=== PATIENT | female | born 1980 | race Caucasian/White ===

== ENCOUNTER 2021-09-17 10:37 | Outpatient (CLI) | payer OTHER, SELFPAY ==
--- NOTE | ~2021-09-17 | CT_ITS ---
EXAMINATION: CT abdomen pelvis w con DATE: 09/17/2021 11:20 INDICATION: Abdominal pain. History of diverticulitis. TECHNIQUE: Computed tomography (CT) of the abdomen and pelvis was performed with 100 cc Omnipaque 350 intravenous contrast. The dose-length product was 1311.55 mGy-cm. Automated exposure control and ite rative reconstruction technique were employed. COMPARISON: CT dated 08/03/2018 FINDINGS: Heart size is normal. No significant pleural or pericardial effusion. There is a stable 1.4 cm left adrenal nodule. Fatty infiltration of the liver. The spleen, pancreas, right adrenal gland a nd kidneys are unremarkable. Gallbladder is present. There is acute sigmoid diverticulitis with free intraperitoneal air, consistent with perforation. No walled off fluid collections to suggest abscess. Gallbladder is present. No significant vascular abnormality. No lymphadenopathy. Gallbladder is pres ent. Moderate degenerative spondylosis at L5-S1. IMPRESSION: 1. Acute sigmoid diverticulitis with perforation. No evidence for discrete abscess. Moderate free air in the left pelvis. Reviewed, dictated and finalized at location A. IMPRESSION: 1. Acute sigmoid diverticulitis with perforation. No evidence for discrete absc ess. Moderate free air in the left pelvis.
== END 2021-09-17 10:38 | disposition home or self-care (01) ==
PROVIDERS: PCP Family Medicine; Visit Provider Physician Assistant Medical
DX: R31.9 Hematuria, unspecified (principal); R10.30 Lower abdominal pain, unspecified; Z87.19 Personal history of other diseases of the digestive system; K57.20 Diverticulitis of large intestine with perforation and abscess without bleeding
CPT/HCPCS: 74177; Q9967

== ENCOUNTER 2021-09-17 12:18 | Inpatient (IN) | payer OTHER, SELFPAY ==
[2021-09-17] VITALS (14 sets, daily range): BP systolic 127–145; BP diastolic 69–96; PULSE 79–99; RESP 11–26; TEMP 36.1–37; O2SAT 97–100; BMI 36.5
[2021-09-17 12:59] LABS: RBC Urine >75 /hpf (0-2); Squamous Epithelial Cell Urine Few /hpf (Few); WBC Urine >75 /hpf
[2021-09-17 13:05] LABS: Add Urine Microscopic? YES; Appearance Urine Cloudy (Clear); Color Urine Red (Yellow)
[2021-09-17 13:09] LABS: Pregnancy On Board Control Positive; Urine Pregnancy Test Negative
--- NOTE | 2021-09-17 13:29 | PC.NURSE ---
this rn tried x 4, with patient permission, for vascular access without success.
--- NOTE | 2021-09-17 13:32 | PC.NURSE ---
cass, vascular access nurse, called and is to attempt access.
--- NOTE | 2021-09-17 14:01 | ED.ABDPAIN ---
HPI - Abdominal Pain General Chief Complaint: Abdominal Pain Stated Complaint: diverticulitis, perf Time Seen by Provider: 09/17/21 12:34 History of Present Illness HPI narrative: Patient is a 41-year-old female who presents ER with abdominal pain. She began having it last week. It worsened over the weekend especially yesterday. She followed up with her PCP today who ordered an outpatient CT scan. Patient found to have perforated diverticulitis. She is not having any fevers or chills or sweats. She has had subjective fevers and chills. No diarrhea. She has had some nausea and vomiting. Related Data Home Medications Medication Instructions Recorded Confirmed No Home Medications 09/17/21 09/17/21 Allergies Allergy/AdvReac Type Severity Reaction Status Date / Time No Known Allergies Allergy Mild Verified 09/17/21 08:26 Review of Systems Review of Systems: All systems reviewed & are unremarkable except as noted in HPI and below Constitutional: Constitutional: Reports chills, Denies fatigue and Reports fever(s) Cardiovascular: Cardiovascular: Denies chest pain Respiratory: Respiratory: Denies cough and Denies dyspnea Gastrointestinal: Gastrointestinal: Reports abdominal pain, Denies diarrhea, Reports nausea and Reports vomiting Genitourinary: Genitourinary: Denies hematuria, Denies dysuria and Denies flank pain PMFSH Past Medical History Medical History BMI 36.0-36.9,adult BMI 38.0-38.9,adult Family History Family History Mother Family history of scoliosis Social History Social History Smoking status: Never smoker Alcohol intake: never Exam Narrative: GENERAL: Well-appearing, well-nourished, and in no acute distress. HEAD: Normocephalic, atraumatic. EYES: PERRL and EOMI. CHEST: Clear to auscultation. No respiratory distress. HEART: Regular rate and rhythm. Normal peripheral pulses. ABDOMEN: Soft, left-sided mid abdominal discomfort with guarding, nondistended, normal active bowel sounds. EXTREMITIES: Normal range of motion. No edema. SKIN: Warm, dry, no rash. NEURO: Alert and oriented x3. PSYCH: Normal mood and affect. Course Course Emergency Course: General surgery consulted. Admit to hospitalist service. IV antibiotics ordered. Patient she will be kept NPO. Vital Signs Vital signs: Vital Signs Temperature 98.3 F 09/17/21 12:26 Pulse Rate 96 09/17/21 12:26 Respiratory Rate 14 09/17/21 12:26 Blood Pressure 135/96 H 09/17/21 12:26 Pulse Oximetry 97 09/17/21 12:26 Oxygen Delivery Room Air 09/17/21 12:26 Temperature 98.5 F 09/17/21 16:15 Pulse Rate 86 09/17/21 17:11 Respiratory Rate 16 09/17/21 17:11 Blood Pressure 127/71 09/17/21 17:11 Pulse Oximetry 100 09/17/21 17:11 Oxygen Delivery Room Air 09/17/21 12:26 MDM - Abdominal Pain Lab Data Result diagrams: 09/17/21 13:50 09/17/21 13:50 Labs: Lab Results 09/17/21 09/17/21 09/17/21 Range/Units 12:39 12:39 13:50 WBC 16.0 H (4.5-10.0) K/mm3 RBC 4.42 (4.2-5.4) M/mm3 Hgb 11.4 L (12.0-15.0) g/dL Hct 36.7 L (37.0-47.0) % MCV 83.0 (80-100) fl MCH 25.8 L (26-34) pg MCHC 31.1 L (32-36) g/dl RDW 15.4 H (11.5-14.5) % Plt Count 308 (150-375) k/mm3 MPV 10.0 (7.4-10.4) fl Immature Gran % (Auto) 0.8 H (0-0.5) % Neut % (Auto) 83.1 H (45.5-73.1) % Lymph % (Auto) 9.1 L (18.3-44.2) % [place] % (Auto) 6.7 (2.6-8.5) % Eos % (Auto) 0.1 (0-4.4) % Baso % (Auto) 0.2 (0.2-1.2) % Lymph # (Auto) 1.46 (0.9-3.2) K/mm3 [place] # (Auto) 1.1 H (0.1-0.6) K/mm3 Eos # (Auto) 0.0 (0-0.3) K/mm3 Baso # (Auto) 0.0 (0.0-0.1) K/mm3 Abs Immat Gran (auto) 0.12 H (0.00-0.031) K/mm3 Absolute Neuts (auto) 13.3 H (1.3-6.7) K/mm3
[2021-09-17 14:02] LABS: Basophils Percent Auto 0.2 % (0.2-1.2); Eosinophils Percent Auto 0.1 % (0-4.4); Hematocrit 36.7 % (37.0-47.0); Hemoglobin 11.4 g/dL (12.0-15.0); Immature Granulocyte Absolute 0.12 K/mm3 (0.00-0.031); Immature Granulocyte Percent A 0.8 % (0-0.5); Lymphocytes Absolute Auto 1.46 K/mm3 (0.9-3.2); Lymphocytes Percent Auto 9.1 % (18.3-44.2); Mean Corpuscular HGB Conc 31.1 g/dl (32-36); Mean Corpuscular Hemoglobin 25.8 pg (26-34); Monocytes Absolute Auto 1.1 K/mm3 (0.1-0.6); Monocytes Percent Auto 6.7 % (2.6-8.5); Neutrophils Absolute Auto 13.3 K/mm3 (1.3-6.7); Neutrophils Percent Auto 83.1 % (45.5-73.1); Platelet Count Result 308 k/mm3 (150-375); Red Blood Count 4.42 M/mm3 (4.2-5.4); Red Cell Distribution Width 15.4 % (11.5-14.5)
[2021-09-17 14:17] LABS: Alanine Aminotransferase 216 U/L (6-35); Albumin Level 4.3 g/dL (3.5-5.1); Alkaline Phosphatase 132 U/L (38-126); Anion Gap 12 mmol/L (8-16); Aspartate Amino Transferase 61 U/L (14-36); Bilirubin,Total 1.5 mg/dL (0.2-1.3); Blood Urea Nitrogen 9 mg/dL (7-17); Calcium 9.4 mg/dL (8.4-10.2); Carbon Dioxide 22 mmol/L (22-30); Chloride 101 mmol/L (98-107); Estimated Glomerular Filt Rate > 60; Glucose 98 mg/dL (65-110); Lipase 18 U/L (23-300); Potassium 3.6 mmol/L (3.4-5.0); Sodium 135 mmol/L (137-145)
[2021-09-17] MEDS: MORPHINE SULFATE (*CRX) 4 MG/ML INJ IV PUSH (15:25)
[2021-09-17] MEDS: SODIUM CHLORIDE 0.9% IV 1,000 ML 125 ML IV CONT ×2 (16:14→23:59)
--- NOTE | 2021-09-17 17:20 | ADMGEN ---
This patient, Annie Suresh, was admitted to 2 Medical Room 259-01. Patient/family oriented to hospital policies and general routines including ID bracelet, bed and alarms, visiting hours, pain management, procedures, bathroom and other care routines, personal items, smoking policy, room service/diet, and visiting hours. Information on how to activate the Rapid Response Team has been discussed. Patient/Family are encouraged to report perceived risks to care and to ask questions if they do not understand what they are told or what they should do.
--- NOTE | 2021-09-17 20:04 | PM.CNGS ---
Assessment and Plan Assessment and plan (1) Perforation of sigmoid colon due to diverticulitis: Code(s): K57.20 - Diverticulitis of large intestine with perforation and abscess without bleeding Status: Acute Assessment and Plan: I have reviewed the CT and discussed the findings with the patient. She has evidence of diverticulitis and there appears to be perforation with free air around the colon, but no free fluid or abscess. There also does not appear to be any distant free air. Will treat with bowel rest and IV antibiotics initially. Will reassess with frequent abdominal exams. Discussed with patient that if she shows continued signs of improvement, will gradually introduce clear liquids and advanced diet. If symptoms are not improving, or she develops fevers, worsening white blood count, or tachycardia, she may need reimaging or urgent surgical intervention. Patient has never had a colonoscopy before, therefore once she completely heals from this episode, I would likely recommend a colonoscopy in 6-8 weeks time. (2) BMI 36.0-36.9,adult: Code(s): Z68.36 - Body mass index [BMI] 36.0-36.9, adult Status: Acute Additional Plan Thank you very much for allowing us to aid in the care of this patient. History of Present Illness Consult details Consult date: 09/17/21 Reason for consult: other ( diverticulitis) Requesting physician: Rahat Vegas MD Narrative: this is a 41-year-old woman who I am asked to see for diverticulitis. She presented to the emergency department today with worsened lower abdominal pain. She began experiencing some pain about 4-5 days ago and pain was gradually progressing. She did not want to have to wait in the emergency department, therefore she waited until this morning to call her PCP. A CT was obtained as an outpatient and then she was referred to the emergency department after receiving the CT results. Pain is located the left lower quadrant. She denies any fevers or chills. She did have some nausea and vomiting last night. She denies any change in her bowel habits. Patient does have a prior history of diverticulitis. Her 1st and only episode was about 3 years ago and this was able to be treated as an outpatient with oral antibiotics. She has never had a colonoscopy. Her CT showed evidence of perforated diverticulitis without abscess. Pain has come and gone and was at about an 8 or 9/10 at its worst, but currently her pain is only at a level around 2. She is able to move around without much difficulty. Review of Systems Review of Systems: All systems reviewed & are unremarkable except as noted in HPI and below Constitutional: Constitutional: Denies chills and Denies fever(s) Eyes: Eyes: Denies change in vision ENT: Denies hearing loss, Denies neck pain and Denies sore throat Cardiovascular: Cardiovascular: Denies chest pain and Denies dyspnea Respiratory: Respiratory: Denies cough, Denies dyspnea and Denies wheezing Gastrointestinal: Gastrointestinal: Reports as per HPI Genitourinary: Genitourinary: Denies hematuria and Denies dysuria Musculoskeletal: Musculoskeletal: Denies arthralgias, Denies joint swelling and Denies neck pain Allergic/Immunologic: Allergic/Immunologic: Denies wheezing [facility] Past Medical History Medical History BMI 36.0-36.9,adult BMI 38.0-38.9,adult Surgical History Surgical History History of section Family History Family History Mother Family history of scoliosis Social History Social History Smoking status: Never smoker Alcohol intake: current Drinks per week: 1 Substance use: current Substance use type: marijuana Other substance usage details: occasional alcohol, Spiritual ca
--- NOTE | 2021-09-17 23:30 | PM.IMHP ---
H&P: HPI History of Present Illness Date/Time: 09/17/212229 Chief Complaint: Abdominal pain Narrative: This is a 41-year-old female patient with a past medical history of having diverticulosis with diverticulitis. The patient began having abdominal pain this last week and she finger that it probably was her diverticulosis. It worsened over the weekend especially yesterday. The patient followed up with her primary care doctor for an outpatient CT scan. She was told that she has a perforated diverticulitis. She is not having any fever chills. She has abdominal pain that is generalized. She also has a headache. She stated that she has not eaten since 8:00 a.m. last night and that she did not have any caffeine today which may be causing her headache. Her white count was noted to be 16.0. H&H is noted to be 11.4 and 36.7. Total bilirubin slightly elevated 1.5, AST slightly elevated to 61, ALT 216, alkaline phosphatase 132. Lipase was low at 18. Urine rbc's greater than 75 and wbc's greater than 75. Urine test was negative. CT of the abdomen from today was read as acute sigmoid diverticulitis with perforation. No evidence of discrete abscess. Moderate free air in the left pelvis. Surgery has been consulted. The patient was started on Zosyn and given Zofran. She was also given IV Tylenol which helped her headaches somewhat. Patient is being admitted to inpatient status on the date of service of 09/17/2021. Review of Systems Review of Systems: See HPI All systems reviewed & are unremarkable except as noted in HPI and below Constitutional: Constitutional: Reports as per HPI and Reports no additional constitutional complaints Eyes: Eyes: Reports as per HPI and Reports no additional eye complaints ENT: Reports system reviewed and no additional complaints, except as documented and Reports Normal hearing present Cardiovascular: Cardiovascular: Reports no additional cardiovascular complaints Respiratory: Respiratory: Reports no additional respiratory complaints and Reports no additional respiratory complaints Gastrointestinal: Gastrointestinal: Reports as per HPI and Reports no additional gastrointestinal complaints Musculoskeletal: Musculoskeletal: Reports no additional musculoskeletal complaints Integumentary/Breasts: Skin/Breast: Reports system reviewed and no additional complaints, except as docu and Reports as per HPI Neurologic: Reports system reviewed and no additional complaints, except as documented, Reports as per HPI and Reports Normal hearing present Psychiatric: Psychiatric: Reports no additional psychiatric complaints and Reports as per HPI Endocrine: Endocrine: Reports no additional endocrine complaints Hematologic/Lymphatic: Hematologic/Lymphatic: Reports no additional hematologic/lymphatic complaints Allergic/Immunologic: Allergic/Immunologic: Reports no additional allergic/immunologic complaints PMFSH Past Medical History Medical History (Updated 09/17/21 @ 23:35 by Joleen Butcher NP) BMI 36.0-36.9,adult BMI 38.0-38.9,adult Hx of diverticulitis of colon Surgical History Surgical History (Updated 09/17/21 @ 23:34 by Joleen Butcher NP) History of section X2 Family History Family History Mother Family history of scoliosis Social History Social History (Updated 09/17/21 @ 23:35 by Joleen Butcher NP) Social History: The patient lives with her and 3 children. The patient works in banking. The patient is a lifelong nonsmoker. And she socially drinks. She denies any marijuana or illicit drugs. Her is a [employer] power [employer] attorney for healthcare. Code status full code Smoking status: Never smoker Alcohol intake: current Drinks per week: 1 Substance use: current Substance use type: marijuana Other substance usage details: occasional alcohol, Spiritual care concerns: No Meds
[2021-09-18] VITALS: BP 129/64; PULSE 73; RESP 20; TEMP 36; O2SAT 100
[2021-09-18 04:00] VITALS: BP 126/67; PULSE 76; RESP 20; TEMP 36.1; O2SAT 100
[2021-09-18 05:46] LABS: Basophils Absolute Auto 0.1 K/mm3 (0.0-0.1); Basophils Percent Auto 0.4 % (0.2-1.2); Eosinophils Absolute Auto 0.1 K/mm3 (0-0.3); Eosinophils Percent Auto 0.7 % (0-4.4); Hematocrit 36.7 % (37.0-47.0); Hemoglobin 11.2 g/dL (12.0-15.0); Immature Granulocyte Absolute 0.09 K/mm3 (0.00-0.031); Immature Granulocyte Percent A 0.7 % (0-0.5); Lymphocytes Percent Auto 17.5 % (18.3-44.2); Mean Corpuscular HGB Conc 30.5 g/dl (32-36); Mean Corpuscular Hemoglobin 25.6 pg (26-34); Monocytes Absolute Auto 1.2 K/mm3 (0.1-0.6); Monocytes Percent Auto 8.8 % (2.6-8.5); Neutrophils Absolute Auto 9.9 K/mm3 (1.3-6.7); Neutrophils Percent Auto 71.9 % (45.5-73.1); Platelet Count Result 295 k/mm3 (150-375); Red Blood Count 4.37 M/mm3 (4.2-5.4); Red Cell Distribution Width 15.3 % (11.5-14.5); White Blood Count 13.7 K/mm3 (4.5-10.0)
[2021-09-18 05:55] LABS: Lactic Acid Reflex 1.2 mmol/L (0.7-2.0)
[2021-09-18 06:04] LABS: Alanine Aminotransferase 142 U/L (6-35); Albumin Level 3.9 g/dL (3.5-5.1); Alkaline Phosphatase 119 U/L (38-126); Anion Gap 12 mmol/L (8-16); Aspartate Amino Transferase 34 U/L (14-36); Bilirubin,Total 1.2 mg/dL (0.2-1.3); Blood Urea Nitrogen 11 mg/dL (7-17); Calcium 8.9 mg/dL (8.4-10.2); Carbon Dioxide 21 mmol/L (22-30); Chloride 103 mmol/L (98-107); Estimated CRCL calculation 105 ml/min; Estimated Glomerular Filt Rate > 60; Glucose 88 mg/dL (65-110); Lactate Dehydrogenase 114 U/L (120-246); Magnesium 2.2 mg/dL (1.6-2.3); Potassium 3.6 mmol/L (3.4-5.0); Sodium 136 mmol/L (137-145)
[2021-09-18 08:00] VITALS: BP 129/77; PULSE 77; RESP 20; TEMP 37; O2SAT 98
--- NOTE | 2021-09-18 08:57 | PM.PNGS ---
Progress Note: A&P Assessment and Plan (1) Perforation of sigmoid colon due to diverticulitis: Code(s): K57.20 - Diverticulitis of large intestine with perforation and abscess without bleeding Status: Acute Assessment and Plan: Continue IV Zosyn Start clear liquids today Continue to monitor (2) BMI 36.0-36.9,adult: Code(s): Z68.36 - Body mass index [BMI] 36.0-36.9, adult Status: Acute Subjective Subjective Date/Time Seen: 09/18/21 08:57 Interval history: Pain improved. No fevers. Bowels moved this AM and passing flatus. Getting around without much difficulty. Exam GI: Inspection: non-distended GI Palp: Yes Soft to palpation, Yes Tenderness to palpation present (GI) (mild LLQ) and No Guarding due to palpation present (GI) Auscultation: normal bowel sounds Objective Data Vital Signs Vital Signs: Vital Signs - 24 hr 09/17/21 12:26 09/17/21 12:38 09/17/21 12:51 Temperature 36.8 C Pulse Rate 96 91 91 Respiratory Rate 14 26 H 21 H Blood Pressure 135/96 H 127/83 Pulse Oximetry 97 100 100 Oxygen Delivery Room Air 09/17/21 13:02 09/17/21 13:15 09/17/21 13:38 Temperature Pulse Rate 86 94 96 Respiratory Rate 16 19 21 H Blood Pressure 127/85 Pulse Oximetry Oxygen Delivery 09/17/21 13:51 09/17/21 14:07 09/17/21 14:22 Temperature Pulse Rate 99 99 96 Respiratory Rate 16 16 20 Blood Pressure Pulse Oximetry Oxygen Delivery 09/17/21 14:30 09/17/21 16:15 09/17/21 17:11 Temperature 36.9 C Pulse Rate 95 79 86 Respiratory Rate 11 L 18 16 Blood Pressure 145/79 H 127/71 Pulse Oximetry 98 100 Oxygen Delivery 09/17/21 17:50 09/17/21 17:20 09/17/21 20:00 Temperature 37.0 C 36.1 C L Pulse Rate 87 81 Respiratory Rate 16 20 Blood Pressure 142/70 H 132/69 Pulse Oximetry 100 99 Oxygen Delivery Room Air 09/17/21 20:00 09/18/21 00:00 09/18/21 04:00 Temperature 36.0 C L 36.1 C L Pulse Rate 73 76 Respiratory Rate 20 20 Blood Pressure 129/64 126/67 Pulse Oximetry 100 100 Oxygen Delivery Room Air 09/18/21 07:51 09/18/21 08:00 Temperature 37.0 C Pulse Rate 77 Respiratory Rate 20 Blood Pressure 129/77 Pulse Oximetry 98 Oxygen Delivery Room Air Intake/Output Intake/Output: Intake & Output 09/15/21 09/16/21 09/17/21 09/18/21 23:59 23:59 23:59 23:59 Intake Total 1200 200 Balance 1200 200 Meds/Results Medications: Active Medications Generic Name Dose Route Start Last Admin Trade Name Freq PRN Reason Stop Dose Admin Piperacillin/Tazobactam/Dextrose 3.375 gm in 50 mls @ 100 mls/hr 09/17/21 19:00 09/18/21 05:56 Zosyn 3.375 Gm/D5w 50ml Pm IVPB Infused Q6HR YANIRA Infusion Acetaminophen 1,000 mg in 100 mls @ 400 mls/hr 09/17/21 15:23 09/18/21 00:38 Ofirmev 1,000 Mg Ivpb IVPB 09/18/21 15:22 Infused Q6H PRN Infusion Mild Pain (1-3) or Fever Sodium Chloride 1,000 mls @ 75 mls/hr 09/17/21 15:25 09/17/21 23:59 Normal Saline Iv IV CONT 125 mls/hr .[id number] YANIRA Administration Morphine Sulfate 4 mg 09/17/21 15:23 Morphine Sulfate (*Crx) 4 Mg/Ml Inj IV PUSH Q2H PRN Pain Rated 7-10 Ondansetron HCl 4 mg 09/17/21 15:23 Ondansetron Inj 4 Mg/2 Ml Vial IV PUSH Q4H PRN Nausea Labs Labs: Laboratory Results - last 24 hr 09/17/21 09/17/21 09/17/21 12:39 12:39 13:50 WBC 16.0 H RBC 4.42 Hgb 11.4 L Hct 36.7 L MCV 83.0 MCH 25.8 L MCHC 31.1 L RDW 15.4 H Plt Count 308 MPV 10.0 Immature Gran % (Auto) 0.8 H Neut % (Auto) 83.1 H Lymph % (Auto) 9.1 L [place] % (Auto) 6.7 Eos % (Auto) 0.1 Baso % (Auto) 0.2 Lymph # (Auto) 1.46 [place] # (Auto) 1.1 H Eos # (Auto) 0.0 Baso # (Auto) 0.0 Abs Immat Gran (auto) 0.12 H Absolute Neuts (auto) 13.3 H Absolute Nucleated RBC 0.0 Nucleated RBC % 0.0 Sodium Potassium Chloride Carbon Dioxide Anion Gap BUN
[2021-09-18] MEDS: SODIUM CHLORIDE 0.9% IV 1,000 ML 75 ML IV CONT ×2 (09:03→23:26)
--- NOTE | 2021-09-18 10:54 | PM.IMPN ---
Progress Note: A&P Assessment and Plan (1) Perforation of sigmoid colon due to diverticulitis: Code(s): K57.20 - Diverticulitis of large intestine with perforation and abscess without bleeding Status: Acute Assessment and Plan: -emergent CT scan demonstrated sigmoid diverticulitis with perforation. No signs of acute abscess present. -surgery managing conservatively with bowel rest, although today her diet has been increased to clear liquids, and monitoring. -continue with Zosyn -surgery recommended colonoscopy in 6-8 weeks after perforation sealed. -continue normal saline at 75 mL/hour. -continue p.r.n. pain medications and antiemetics. -continue to monitor labs and vitals. (2) UTI (urinary tract infection): Code(s): N39.0 - Urinary tract infection, site not specified Status: Acute Assessment and Plan: -UA with evidence for concern of possible acute urinary tract infection. However, there was a large amount of blood that left the urine to be unable to analyze properly. Therefore will await results of urine culture which is still pending. -continue current Zosyn therapy. Time Spent With Patient Time with patient: 15 - 25 minutes (15 mintues) Subjective Date/time seen: 09/18/21 4141 This patient was examined today at the bedside in interval assessment. She reports that her pain is exquisitely improved and she is passing gas without difficulty. She remains on Zosyn at this time. Her white blood cell count today has decreased to 13.7 from 16.0 yesterday. Her electrolytes remained stable. She has been evaluated by surgery and she is starting clear liquid diet today. She denies any current chest pain, dyspnea, nausea, vomiting, diarrhea, headache, dizziness, lightheadedness. She remains tender in the left lower and left suprapubic regions, however noting it is not as bad as yesterday. Review of Systems Review of Systems: All systems reviewed & are unremarkable except as noted in HPI and below Exam Const: General: comfortable and no acute distress Other: Pleasant female patient lying supine in bed at this time HENMT: Head: normal to inspection, No palpable skull fracture present, normocephalic and atraumatic Ears: hearing grossly normal bilaterally and external ears normal General nose exam: Normal nares present and no epistaxis Mouth: Yes moist mucous membranes Eyes: General: appearance normal, both eyes and all related structures Sclera: sclerae normal Pupils: Equal, round and reactive pupils present EOM: EOMs intact bilaterally Neck: Neck: supple and no JVD Thyroid: abnormal thyroid Lymphatic: lymphadenopathy not noted Resp: Effort & Inspection: normal respiratory effort Auscultation: clear to auscultation bilaterally Cardio: Rate: regular rate Rhythm: regular rhythm Heart sounds: no gallops, no murmurs and no rubs GI: Inspection: non-distended GI Palp: Yes Soft to palpation, Yes Tenderness to palpation present (GI) (Left lower quadrant and suprapubic) and No Guarding due to palpation present (GI) Auscultation: normal bowel sounds Skin: General skin exam: normal color and no rashes or lesions noted Wounds: no wounds Neuro: General: gait normal Speech: normal speech Motor exam (neuro): 5/5 motor strength present throughout and Normal motor muscle tone present throughout Sensory Exam: normal sensation Extrem: General: normal to inspection, no edema and no pedal edema Psych: Mental Status: mental status grossly normal Affect: normal affect Objective Data Vital Signs Vital Signs: Vital Signs - 24 hr 09/17/21 12:26 09/17/21 12:38 09/17/21 12:51 Temperature 98.3 F Pulse Rate 96 91 91 Respiratory Rate 14 26 H 21 H Blood Pressure 135/96 H 127/83 Pulse Oximetry 97 100 100 Oxygen Delivery Room Air 09/17/21 13:02 09/17/21 13:15 09/17/21 13:38 Temperature Pulse Rate 86 94 96 Respiratory Rate 16 19 21 H Blood Pressure 127/85 Pulse Oximetry Oxyge
[2021-09-18 12:00] VITALS: BP 120/70; PULSE 78; RESP 20; TEMP 37; O2SAT 99
[2021-09-18 16:00] VITALS: BP 124/72; PULSE 77; RESP 20; TEMP 36.9; O2SAT 99
[2021-09-18 20:00] VITALS: BP 162/93; PULSE 96; RESP 20; TEMP 36.4; O2SAT 100
[2021-09-19] VITALS (7 sets, daily range): BP systolic 126–147; BP diastolic 72–96; PULSE 64–87; RESP 16–20; TEMP 36.1–36.6; O2SAT 97–100
[2021-09-19 06:23] LABS: Basophils Percent Auto 0.2 % (0.2-1.2); Eosinophils Absolute Auto 0.1 K/mm3 (0-0.3); Eosinophils Percent Auto 0.8 % (0-4.4); Hematocrit 31.9 % (37.0-47.0); Hemoglobin 9.9 g/dL (12.0-15.0); Immature Granulocyte Absolute 0.07 K/mm3 (0.00-0.031); Immature Granulocyte Percent A 0.7 % (0-0.5); Lymphocytes Absolute Auto 2.11 K/mm3 (0.9-3.2); Lymphocytes Percent Auto 20.9 % (18.3-44.2); Mean Corpuscular Hemoglobin 25.4 pg (26-34); Mean Platelet Volume 9.6 fl (7.4-10.4); Monocytes Absolute Auto 0.8 K/mm3 (0.1-0.6); Monocytes Percent Auto 7.6 % (2.6-8.5); Neutrophils Percent Auto 69.8 % (45.5-73.1); Platelet Count Result 287 k/mm3 (150-375); Red Blood Count 3.89 M/mm3 (4.2-5.4); Red Cell Distribution Width 14.9 % (11.5-14.5); White Blood Count 10.1 K/mm3 (4.5-10.0)
[2021-09-19 06:43] LABS: Alanine Aminotransferase 90 U/L (6-35); Albumin Level 3.5 g/dL (3.5-5.1); Alkaline Phosphatase 113 U/L (38-126); Anion Gap 9 mmol/L (8-16); Aspartate Amino Transferase 24 U/L (14-36); Bilirubin,Total 0.5 mg/dL (0.2-1.3); Blood Urea Nitrogen 6 mg/dL (7-17); Calcium 8.1 mg/dL (8.4-10.2); Carbon Dioxide 22 mmol/L (22-30); Chloride 106 mmol/L (98-107); Estimated CRCL calculation 119 ml/min; Estimated Glomerular Filt Rate > 60; Glucose 92 mg/dL (65-110); Potassium 3.3 mmol/L (3.4-5.0); Sodium 137 mmol/L (137-145)
--- NOTE | 2021-09-19 08:28 | PM.IMPN ---
Progress Note: A&P Assessment and Plan (1) Perforation of sigmoid colon due to diverticulitis: Code(s): K57.20 - Diverticulitis of large intestine with perforation and abscess without bleeding Status: Acute Assessment and Plan: -emergent CT scan demonstrated sigmoid diverticulitis with perforation. No signs of acute abscess present. -surgery managing patient along with hospitalist service. Patient has done well with clear liquid diet. I recommend transitioning to full liquid or either low fiber if surgery is in agreement. - I suspicion from our standpoint patient could possibly discharge tomorrow after receiving results of urine culture sensitivity as well as trending hemoglobin. -continue with Zosyn -surgery recommended colonoscopy in 6-8 weeks after perforation sealed. -continue normal saline at 75 mL/hour. -continue p.r.n. pain medications and antiemetics. -continue to monitor labs and vitals.. (2) UTI (urinary tract infection): Code(s): N39.0 - Urinary tract infection, site not specified Status: Acute Assessment and Plan: -UA with evidence for concern of possible acute urinary tract infection. - Urine culture returned [phone] colonies a Gram-negative bacilli. Differential for Gram-negative bacilli include Klebsiella, Acinetobacter, pseudomonas and E coli. Will await sensitivities to ensure patient placed on correct antibiotic for discharge home. -continue current Zosyn therapy. (3) Anemia: Code(s): D64.9 - Anemia, unspecified Status: Acute Assessment and Plan: - likely secondary to acute blood loss. - Patient is currently on her menstrual cycle. - Hemoglobin decreased from 11.2 yesterday to 9.9 today. - No overt bleeding with exception of menstrual cycle, however patient does have bowel perforation so I would like to consider watching her closely over the next day to make sure that there is no further decline in hemoglobin with associated increasing pain. If this occurs would consider repeat CT scan of the abdomen and pelvis. Plan I continue to appreciate co-management with General surgery. Time Spent With Patient Time with patient: 15 - 25 minutes Subjective Date/time seen: 09/19/21 2620 This pleasant 41-year-old female patient was examined at the bedside today status post admission for sigmoid diverticulitis with perforation. She has had interval improvement over the course of her admission thus far With regards to pain in her white blood cell count decreasing. Patient is currently on a clear liquid diet and she tolerated it well. I do suggest we advanced it today if okay with surgery. I would like to monitor patient for an additional day due to the fact that her urine grew out Gram-negative bacilli [phone] colonies. In addition her hemoglobin Significantlydropped yesterday from 11.2-9.9. Patient is currently on her menses, however given her recent perforation I feel this should be trended to make sure it does not go any lower. In addition I would like to receive the sensitivity from the urine culture that grew out a Gram-negative bacilli as multiple organisms including Klebsiella, Acinetobacter, Pseudomonas and E coli are possibly the causative factors, To ensure she is placed on the right medication for return to home. Patient is anxious to go home, however also does not want to leave to only have to come back. Currently she denies any chest pain, dyspnea, nausea, vomiting, diarrhea. She does have some mild abdominal pain but is much improved over when she originally presented to the hospital. Her vital signs are stable. There are no new conditions to start treatment on today. Review of Systems Review of Systems: All systems reviewed & are unremarkable except as noted in HPI and below Exam Const: General: comfortable and no acute distress Other: Pleasant female patient lying on her right side in bed at this time HENMT: Head:
[2021-09-19] MEDS: POTASSIUM CHLORIDE 20 MEQ TABLET.ER 40 MEQ PO (09:03)
[2021-09-19] MEDS: SODIUM CHLORIDE 0.9% IV 1,000 ML 75 ML IV CONT (09:04)
--- NOTE | 2021-09-19 09:49 | PM.PNGS ---
Progress Note: A&P Assessment and Plan (1) Perforation of sigmoid colon due to diverticulitis: Code(s): K57.20 - Diverticulitis of large intestine with perforation and abscess without bleeding Status: Acute Assessment and Plan: Continues to improve. WBC trending down, abdominal pain and tenderness much improved Continue IV Zosyn Will start advancing to a low fiber diet. Consulted the dietitian for education. Okay to discharge and transition to oral antibiotics later this evening or tomorrow if she is tolerating her diet (2) BMI 36.0-36.9,adult: Code(s): Z68.36 - Body mass index [BMI] 36.0-36.9, adult Status: Acute Additional Plan I have discussed the patient's case and plan of care with Dr. Hurtado. Subjective Subjective Date/Time Seen: 09/19/21 09:49 Patient reports: no new complaints, feels better, pain is less, tolerating liquids well, flatus, bowel movement and afebrile Interval history: This is a 41 yo F who was found to have perforated sigmoid diverticulitis. Perforation was localized and patient has been treated conservatively with IV antibiotics and bowel rest. She is currently on clear liquids. Chart reviewed. She reportedly feels much better than when she was admitted. Her abdominal pain continues to improve. She reports only having minor lower abdominal discomfort with what feels like gas intermittently. Denies any pain at the time of my exam. No nausea or vomiting. She reports loose stools this morning. Review of Systems Review of Systems: All systems reviewed & are unremarkable except as noted in HPI and below Exam Const: General: alert; No acute distress Orientation/consciousness: patient oriented x3 GI: Inspection: non-distended GI Palp: Yes Soft to palpation, Yes Tenderness to palpation present (GI) (mild TTP in LLQ), No Guarding due to palpation present (GI) and No Rebound tenderness present Auscultation: normal bowel sounds Neuro: General: moves all extremities and no focal motor deficits Extrem: General: normal to inspection Objective Data Vital Signs Vital Signs: Vital Signs - 24 hr 09/18/21 12:00 09/18/21 16:00 09/18/21 19:58 Temperature 98.6 F 98.5 F Pulse Rate 78 77 Respiratory Rate 20 20 Blood Pressure 120/70 124/72 Pulse Oximetry 99 99 Oxygen Delivery Room Air 09/18/21 20:00 09/19/21 00:00 09/19/21 04:00 Temperature 97.5 F L 97.9 F 97.7 F Pulse Rate 96 76 76 Respiratory Rate 20 20 20 Blood Pressure 162/93 H 144/72 H 126/80 Pulse Oximetry 100 100 97 Oxygen Delivery 09/19/21 08:00 09/19/21 09:31 Temperature Pulse Rate Respiratory Rate Blood Pressure Pulse Oximetry 98 Oxygen Delivery Room Air Room Air Intake/Output Intake/Output: Intake & Output 09/16/21 09/17/21 09/18/21 09/19/21 23:59 23:59 23:59 23:59 Intake Total 1200 3110 1340 Output Total 1200 Balance 1200 1910 1340 Meds/Results Medications: Active Medications Generic Name Dose Route Start Last Admin Trade Name Freq PRN Reason Stop Dose Admin Piperacillin/Tazobactam/Dextrose 3.375 gm in 50 mls @ 100 mls/hr 09/17/21 19:00 09/19/21 06:04 Zosyn 3.375 Gm/D5w 50ml Pm IVPB 100 mls/hr Q6HR YANIRA Administration Sodium Chloride 1,000 mls @ 75 mls/hr 09/17/21 15:25 09/19/21 09:04 Normal Saline Iv IV CONT 75 mls/hr .[id number] YANIRA Administration Morphine Sulfate 4 mg 09/17/21 15:23 Morphine Sulfate (*Crx) 4 Mg/Ml Inj IV PUSH Q2H PRN Pain Rated 7-10 Ondansetron HCl 4 mg 09/17/21 15:23 Ondansetron Inj 4 Mg/2 Ml Vial IV PUSH Q4H PRN Nausea Potassium Chloride 40 meq 09/19/21 08:00 09/19/21 09:03 Potassium Chloride 20 Meq Tablet.Er PO 40 meq DAILY@0800 YANIRA Administration Labs Labs: Laboratory Results - last 24 hr 09/19/21 09/19/21 06:14 06:14 WBC 10.1 H RBC 3.89 L Hgb 9.9 L Hct 31.9 L MCV 82.0 MCH 25.4 L MCHC 31.0 L RDW 14.9 H Plt Count 287 MPV
--- NOTE | 2021-09-19 13:41 | PCDIET ---
Nutrition consult for diet education for low fiber vs high fiber. See Nutritional Teaching Intervention. Thank you for the consult.
[2021-09-20 00:12] VITALS: BP 141/84; PULSE 64; RESP 16; TEMP 36.4; O2SAT 99
[2021-09-20 03:25] VITALS: BP 138/74; PULSE 62; RESP 12; TEMP 36.6; O2SAT 98
[2021-09-20] MEDS: SODIUM CHLORIDE 0.9% IV 1,000 ML 75 ML IV CONT (05:27)
[2021-09-20 06:30] LABS: Basophils Percent Auto 0.5 % (0.2-1.2); Eosinophils Absolute Auto 0.1 K/mm3 (0-0.3); Eosinophils Percent Auto 1.6 % (0-4.4); Hemoglobin 10.1 g/dL (12.0-15.0); Immature Granulocyte Absolute 0.06 K/mm3 (0.00-0.031); Immature Granulocyte Percent A 0.8 % (0-0.5); Lymphocytes Absolute Auto 2.88 K/mm3 (0.9-3.2); Lymphocytes Percent Auto 37.7 % (18.3-44.2); Mean Corpuscular HGB Conc 30.6 g/dl (32-36); Mean Corpuscular Volume 85.1 fl (80-100); Monocytes Absolute Auto 0.7 K/mm3 (0.1-0.6); Monocytes Percent Auto 8.9 % (2.6-8.5); Neutrophils Absolute Auto 3.9 K/mm3 (1.3-6.7); Neutrophils Percent Auto 50.5 % (45.5-73.1); Platelet Count Result 297 k/mm3 (150-375); Red Blood Count 3.88 M/mm3 (4.2-5.4); White Blood Count 7.6 K/mm3 (4.5-10.0)
[2021-09-20 07:10] LABS: Alanine Aminotransferase 68 U/L (6-35); Albumin Level 3.2 g/dL (3.5-5.1); Alkaline Phosphatase 121 U/L (38-126); Anion Gap 10 mmol/L (8-16); Aspartate Amino Transferase 31 U/L (14-36); Bilirubin,Total 0.3 mg/dL (0.2-1.3); Blood Urea Nitrogen 6 mg/dL (7-17); Calcium 8.4 mg/dL (8.4-10.2); Carbon Dioxide 23 mmol/L (22-30); Chloride 105 mmol/L (98-107); Estimated CRCL calculation 105 ml/min; Estimated Glomerular Filt Rate > 60; Glucose 97 mg/dL (65-110); Magnesium 2.1 mg/dL (1.6-2.3); Potassium 3.4 mmol/L (3.4-5.0); Sodium 138 mmol/L (137-145)
[2021-09-20] MEDS: POTASSIUM CHLORIDE 20 MEQ TABLET.ER 40 MEQ PO (08:24)
[2021-09-20 10:32] VITALS: BP 154/74; PULSE 61; RESP 16; TEMP 36.2; O2SAT 100
--- NOTE | 2021-09-20 12:05 | PM.DS ---
DS: Admitting Diagnosis Discharge Date 09/20/21 Admitting Diagnosis (1) Perforation of sigmoid colon due to diverticulitis: (2) UTI (urinary tract infection): DS: Discharge Diagnosis Discharge Diagnosis (1) UTI (urinary tract infection): Code(s): N39.0 - Urinary tract infection, site not specified Status: Acute (2) Perforation of sigmoid colon due to diverticulitis: Code(s): K57.20 - Diverticulitis of large intestine with perforation and abscess without bleeding Status: Acute (3) Hx of diverticulitis of colon: Code(s): Z87.19 - Personal history of other diseases of the digestive system Status: Acute (4) UTI due to Klebsiella species: Code(s): N39.0 - Urinary tract infection, site not specified; B96.89 - Other specified bacterial agents as the cause of diseases classified elsewhere Status: Acute DS: Summary Hospital Course Reason for hospitalization: abd pain Hospital Course: 41-year-old female presented to the emergency room with chief complaint of abdominal pain. In the ER?her white count was noted to be 16.0.? H&H is noted to be 11.4 and 36.7.? Total bilirubin slightly elevated 1.5, AST slightly elevated to 61, ALT 216, alkaline phosphatase 132.? Lipase was low at 18.? Urine rbc's greater than 75 and wbc's greater than 75.? Urine test was negative.? CT of the abdomen was read as acute sigmoid diverticulitis with perforation.? No evidence of discrete abscess.? Moderate free air in the left pelvis.? Surgery was consulted, and she was started on Zosyn and given Zofran.? She was also given IV Tylenol which helped her headaches somewhat.? Dr. Hurtado saw the patient and conservative management was recommended. Patient improved rapidly and was able to be advanced to a regular diet over the following 3 days. At the time of discharge her pain has completely resolved, her leukocytosis has resolved, she is tolerating diet, and having normal bowel function. Patient was also noted to have a urinary tract infection with Klebsiella. Based on culture sensitivity she is discharged home on Augmentin with metronidazole to complete a 14 day course as treatment for both her UTI and her diverticulitis. She is given indications to follow-up with her primary care physician and with the surgeon for ongoing care and outpatient colonoscopy in 1-2 months. Status at Discharge Functional status at discharge: independent ambulation Overall status at discharge: patient is back to baseline Time Spent with Patient Time attestation: Total time spent providing and/or coordinating discharge services: Time spent: Greater than 30 minutes Exam Narrative: GEN: NAD, AAOx3, cooperative, obese HEENT: NCAT, MMM, EOMI Neck: no JVD Ext: moves all, no cyanosis, no clubbing, no edema Neuro: normal cognition, CN intact no focal deficits Psych: mood and affect congruent DS: Data Data Completed and Pending Labs on day of discharge: Labs from last 24 hours 09/20/21 09/20/21 06:21 06:21 WBC 7.6 RBC 3.88 L Hgb 10.1 L Hct 33.0 L MCV 85.1 MCH 26.0 MCHC 30.6 L RDW 15.0 H Plt Count 297 MPV 10.0 Immature Gran % (Auto) 0.8 H Neut % (Auto) 50.5 Lymph % (Auto) 37.7 [place] % (Auto) 8.9 H Eos % (Auto) 1.6 Baso % (Auto) 0.5 Lymph # (Auto) 2.88 [place] # (Auto) 0.7 H Eos # (Auto) 0.1 Baso # (Auto) 0.0 Abs Immat Gran (auto) 0.06 H Absolute Neuts (auto) 3.9 Absolute Nucleated RBC 0.0 Nucleated RBC % 0.0 Sodium 138 Potassium 3.4 Chloride 105 Carbon Dioxide 23 Anion Gap 10 BUN 6 L Creatinine 0.80 Estim Creat Clear Calc 105 Estimated GFR > 60 Glucose 97 Calcium 8.4 Magnesium 2.1 Total Bilirubin 0.3 AST 31 ALT 68 H Alkaline Phosphatase 121 Total Protein 6.0 L Albumin 3.2 L Additional Comments Additional comments: Urine Culture Final 09/20/21-0741 Q Organism
--- NOTE | 2021-09-20 12:41 | PM.PNGS ---
Progress Note: A&P Assessment and Plan (1) Perforation of sigmoid colon due to diverticulitis: Code(s): K57.20 - Diverticulitis of large intestine with perforation and abscess without bleeding Status: Acute Assessment and Plan: OK to discharge from surgical standpoint. Continue low fiber diet for 2 weeks. Finish 14 day course of antibiotics. Will have patient follow up in office in 2 weeks. Discussed eventual colonoscopy 6-8 weeks from now. Subjective Subjective Date/Time Seen: 09/20/21 12:41 Interval history: Pain resolved. Tolerating diet. No fevers. Exam GI: Inspection: non-distended GI Palp: Yes Soft to palpation, No Tenderness to palpation present (GI) and No Guarding due to palpation present (GI) Auscultation: normal bowel sounds Objective Data Vital Signs Vital Signs: Vital Signs - 24 hr 09/19/21 14:07 09/19/21 18:33 09/19/21 19:25 Temperature 36.1 C L 36.6 C 36.3 C L Pulse Rate 69 87 77 Respiratory Rate 16 16 16 Blood Pressure 145/96 H 146/75 H 140/84 Pulse Oximetry 100 100 100 Oxygen Delivery 09/19/21 19:29 09/20/21 00:12 09/20/21 03:25 Temperature 36.4 C 36.6 C Pulse Rate 64 62 Respiratory Rate 16 12 Blood Pressure 141/84 H 138/74 Pulse Oximetry 99 98 Oxygen Delivery Room Air 09/20/21 07:47 Temperature Pulse Rate Respiratory Rate Blood Pressure Pulse Oximetry Oxygen Delivery Room Air Intake/Output Intake/Output: Intake & Output 09/17/21 09/18/21 09/19/21 09/20/21 23:59 23:59 23:59 23:59 Intake Total 1200 3110 2530 1490 Output Total 1200 Balance 1200 1910 2530 1490 Meds/Results Medications: Active Medications Generic Name Dose Route Start Last Admin Trade Name Freq PRN Reason Stop Dose Admin Acetaminophen 650 mg 09/20/21 08:17 Acetaminophen 325 Mg Tablet PO Q4H PRN Pain Rated 1-3 Piperacillin/Tazobactam/Dextrose 3.375 gm in 50 mls @ 100 mls/hr 09/17/21 19:00 09/20/21 12:04 Zosyn 3.375 Gm/D5w 50ml Pm IVPB 100 mls/hr Q6HR YANIRA Administration Morphine Sulfate 4 mg 09/17/21 15:23 Morphine Sulfate (*Crx) 4 Mg/Ml Inj IV PUSH Q2H PRN Pain Rated 7-10 Ondansetron HCl 4 mg 09/17/21 15:23 Ondansetron Inj 4 Mg/2 Ml Vial IV PUSH Q4H PRN Nausea Potassium Chloride 40 meq 09/19/21 08:00 09/20/21 08:24 Potassium Chloride 20 Meq Tablet.Er PO 40 meq DAILY@0800 YANIRA Administration Labs Labs: Laboratory Results - last 24 hr 09/20/21 09/20/21 06:21 06:21 WBC 7.6 RBC 3.88 L Hgb 10.1 L Hct 33.0 L MCV 85.1 MCH 26.0 MCHC 30.6 L RDW 15.0 H Plt Count 297 MPV 10.0 Immature Gran % (Auto) 0.8 H Neut % (Auto) 50.5 Lymph % (Auto) 37.7 [place] % (Auto) 8.9 H Eos % (Auto) 1.6 Baso % (Auto) 0.5 Lymph # (Auto) 2.88 [place] # (Auto) 0.7 H Eos # (Auto) 0.1 Baso # (Auto) 0.0 Abs Immat Gran (auto) 0.06 H Absolute Neuts (auto) 3.9 Absolute Nucleated RBC 0.0 Nucleated RBC % 0.0 Sodium 138 Potassium 3.4 Chloride 105 Carbon Dioxide 23 Anion Gap 10 BUN 6 L Creatinine 0.80 Estim Creat Clear Calc 105 Estimated GFR > 60 Glucose 97 Calcium 8.4 Magnesium 2.1 Total Bilirubin 0.3 AST 31 ALT 68 H Alkaline Phosphatase 121 Total Protein 6.0 L Albumin 3.2 L
== END 2021-09-20 12:58 | disposition home or self-care (01) | DRG 392 ==
LOC: ANHED 13:12 → ANH2MED 16:50
PROVIDERS: Nurse Practitioner; Nurse Practitioner Adult Health; Admitting Provider Internal Medicine; Emergency Provider Emergency Medicine; PCP Family Medicine; Visit Provider Hospitalist
DX: K57.20 Diverticulitis of large intestine with perforation and abscess without bleeding (principal); N39.0 Urinary tract infection, site not specified; D64.9 Anemia, unspecified; B96.1 Klebsiella pneumoniae [K. pneumoniae] as the cause of diseases classified elsewhere; Z68.36 Body mass index [BMI] 36.0-36.9, adult
CPT/HCPCS: 36415; 74177; 80053; 81001; 81025; 83605; 83615; 83690; 83735; 85025; 87077; 87086; 87186; 96365; 96375; 99285; A9270; G0378; J0131; J2270; J2543; J7030; Q9967

== ENCOUNTER 2021-12-14 01:24 | Day surgery (SDC) | payer OTHER, SELFPAY ==
[2021-12-05 14:01] VITALS: BMI 38.3
[2021-12-14 08:32] VITALS: BP 141/91; PULSE 75; RESP 20; TEMP 36.2; O2SAT 100; BMI 38.9
[2021-12-14] MEDS: LACTATED RINGERS 1,000 ML 150 ML IV CONT (08:51)
--- NOTE | 2021-12-14 09:08 | WPDANESEPPF ---
Anes - Initial Pre Proc Eval Procedure: Operation Date: 12/14/21 09:30 Proposed Procedures p Colonoscopy - Luis Ranodlph MD Date/Time: 12/14/21 09:08 Surgeon: Luis Randolph MD Pre Op Diagnosis: diverticulitis Patient Data Age: 41 Gender: F Height: 1.7 m Weight: 112.7 kg Last Vital Signs Temp 97.2 F L 12/14/21 08:32 Pulse 75 12/14/21 08:32 Resp 20 12/14/21 08:32 BP 141/91 H 12/14/21 08:32 Pulse Ox 100 12/14/21 08:32 O2 Del Method Room Air 12/14/21 08:32 Allergies Allergy/AdvReac Type Severity Reaction Status Date / Time No Known Allergies Allergy Mild Verified 12/14/21 08:31 Home Medications Medication Instructions Recorded Confirmed Type cholecalciferol (vitamin D3) 125 500 unit PO DAILY 09/17/21 12/14/21 History mcg (5,000 unit) capsule (Dialyvite Vitamin D) loratadine 10 mg tablet (Allergy 10 mg PO DAILY 09/17/21 12/14/21 History Relief (loratadine)) omega-3 fatty acids 1 cap PO DAILY 09/17/21 12/14/21 History acetaminophen 325 mg tablet (Mapap 650 mg PO Q4H PRN Pain Rated 1-3 09/20/21 12/14/21 Rx (acetaminophen)) #20 tabs Patient hx anesthesia problems: none Family hx anesthesia problems: none Results Review: All pre-operative results and documents have been reviewed as part of the pre-operative evaluation. [facility] Past Medical History Medical History (Updated 10/23/21 @ 15:42 by Sherrie Rios, ELSY) BMI 36.0-36.9,adult BMI 38.0-38.9,adult Hx of diverticulitis of colon RUQ abdominal pain Surgical History Surgical History History of section X2 Family History Family History Mother Family history of scoliosis Social History Social History Social History: The patient lives with her and 3 children. The patient works in [employer]. The patient is a lifelong nonsmoker. And she socially drinks. She denies any marijuana or illicit drugs. Her is a durable power mergers and acquisitions attorney for healthcare. Code status full code Years smoked: 2 Smoking status: Never smoker Tobacco type: cigarettes Alcohol intake: current Drinks per week: 1 Alcohol use details: 1 drink weekly Substance use: current Substance use type: marijuana Other substance usage details: occasional alcohol, Last use: Monthly Living arrangements: with family Spiritual care concerns: No Anes - Eval Final PreProcedure Day of Procedure 12/14/21 09:08 Patient weight: obese Heart: regular rate and rhythm Lungs: clear to auscultation Airway: Mallampati scale class II Neurological: alert and oriented Last oral intake: >/= 8 hours ASA classification: III Emergent: no Anesthetic plan: proceed Anesthesia type and monitoring: general GIVS and standard monitoring Results Review: All pre-operative results and documents have been reviewed as part of the pre-operative evaluation. Informed Consent: The patient's anesthetic plan and its attendant risks and benefits were discussed with the patient/family/POA. Questions were solicited and answers provided to the satisfaction of the patient/family/POA.
--- NOTE | 2021-12-14 09:08 | PM.HPGS ---
History of Present Illness History of Present Illness Consent: Risks, benefits, and alternatives have been discussed and questions answered. Patient agrees to proceed with procedure. Chief complaint: diverticulitis Narrative: Annie Suresh is a 41 year old female with previous diverticulitis, she is asymptomatic but never had colonoscopy Review of Systems Constitutional: Constitutional: Denies headache(s) and Denies weakness Eyes: Eyes: Denies blurry vision ENT: Reports Normal hearing present, Denies headache(s) and Denies neck pain Cardiovascular: Cardiovascular: Denies chest pain and Denies dyspnea Respiratory: Respiratory: Denies dyspnea Gastrointestinal: Gastrointestinal: Reports no additional gastrointestinal complaints Genitourinary: Genitourinary: Denies dysuria Musculoskeletal: Musculoskeletal: Denies neck pain Integumentary/Breasts: Skin/Breast: Denies dry skin Neurologic: Reports Normal hearing present, Denies headache(s) and Denies weakness Psychiatric: Psychiatric: Denies anxiety Endocrine: Endocrine: Denies change in body appearance Hematologic/Lymphatic: Hematologic/Lymphatic: Denies easy bleeding Allergic/Immunologic: Allergic/Immunologic: Denies urticaria PMFSH Past Medical History Medical History (Updated 10/23/21 @ 15:42 by Sherrie Rios, ELSY) BMI 36.0-36.9,adult BMI 38.0-38.9,adult Hx of diverticulitis of colon RUQ abdominal pain Surgical History Surgical History History of section X2 Family History Family History Mother Family history of scoliosis Social History Social History Social History: The patient lives with her and 3 children. The patient works in banking. The patient is a lifelong nonsmoker. And she socially drinks. She denies any marijuana or illicit drugs. Her is a durable power patch driller for healthcare. Code status full code Years smoked: 2 Smoking status: Never smoker Tobacco type: cigarettes Alcohol intake: current Drinks per week: 1 Alcohol use details: 1 drink weekly Substance use: current Substance use type: marijuana Other substance usage details: occasional alcohol, Last use: Monthly Living arrangements: with family Spiritual care concerns: No Meds Home Medications and Allergies Home Medications Medication Instructions Recorded Confirmed Type cholecalciferol (vitamin D3) 125 500 unit PO DAILY 09/17/21 12/14/21 History mcg (5,000 unit) capsule (Dialyvite Vitamin D) loratadine 10 mg tablet (Allergy 10 mg PO DAILY 09/17/21 12/14/21 History Relief (loratadine)) omega-3 fatty acids 1 cap PO DAILY 09/17/21 12/14/21 History acetaminophen 325 mg tablet (Mapap 650 mg PO Q4H PRN Pain Rated 1-3 09/20/21 12/14/21 Rx (acetaminophen)) #20 tabs Allergies Allergy/AdvReac Type Severity Reaction Status Date / Time No Known Allergies Allergy Mild Verified 12/14/21 08:31 Vital Signs Vital Signs - 24 hr 12/14/21 08:32 Temperature 97.2 F L Pulse Rate 75 Respiratory Rate 20 Blood Pressure 141/91 H Pulse Oximetry 100 Oxygen Delivery Room Air Exam Const: General: comfortable and no acute distress HENMT: Face/Nose/Sinus: Normal nares present Eyes: General: appearance normal, both eyes and all related structures Neck: Neck: no JVD Resp: Auscultation: clear to auscultation bilaterally Cardio: Rate: regular rate Rhythm: regular rhythm GI: Inspection: non-distended GI Palp: Yes Soft to palpation Skin: General skin exam: normal color Neuro: General: gait normal Speech: normal speech Extrem: General: normal to inspection Psych: Mental Status: mental status grossly normal Assessment and Plan Assessment and plan (1) Diverticulitis of colon with perforation: Code(s): K5
[2021-12-14 09:36] VITALS: BP 131/81; PULSE 76; RESP 20; O2SAT 100
[2021-12-14 09:46] VITALS: BP 130/82; PULSE 76; RESP 16; O2SAT 100
[2021-12-14 09:56] VITALS: BP 138/92; PULSE 73; RESP 16; O2SAT 100
== END 2021-12-14 10:02 | disposition home or self-care (01) ==
PROVIDERS: PCP Family Medicine; Visit Provider Internal Medicine Gastroenterology
PROC: 0DJD8ZZ Inspection of Lower Intestinal Tract, Via Natural or Artificial Opening Endoscopic (ICD-10-PCS; CPT 45378; principal; 2021-12-14 09:30)
DX: K57.30 Diverticulosis of large intestine without perforation or abscess without bleeding (principal); K64.8 Other hemorrhoids
CPT/HCPCS: 45378; J2704; J7120